=== PATIENT | female | born 1985 | race Caucasian/White ===

== ENCOUNTER 2017-01-01 08:15 | Outpatient (CLI) | payer BC | END 2017-01-01 08:16 | disposition home or self-care (01) | DX: R01.1 Cardiac murmur, unspecified (principal) ==

== ENCOUNTER 2018-05-29 13:00 | Outpatient (CLI) | payer OTHER ==
[2018-05-29 14:09] LABS: HCG,QUALITATIVE BLOOD NEGATIVE
== END 2018-05-29 13:01 | disposition home or self-care (01) ==
LOC: LAB 13:00
PROVIDERS: ATTEND Nurse Practitioner Family
DX: N97.8 Female infertility of other origin (principal); N91.2 Amenorrhea, unspecified
CPT/HCPCS: 36415; 84703

== ENCOUNTER 2019-01-03 09:09 | Outpatient (CLI) | payer BC ==
--- NOTE | 2019-01-04 14:34 | Ultrasound Report ---
Reason: LUMP Procedure Date: 01/03/2019 Accession Number: [id number] / [id number] Procedure: US - Ext Limited Non Vascular CPT Code: FULL RESULT: EXAM: LEFT UPPER EXTREMITY ULTRASOUND - LIMITED EXAM DATE: 01/03/2019 09:24 AM. CLINICAL HISTORY: Palpable left axillary lump. COMPARISON: None. TECHNIQUE: Real-time scanning was performed with static images obtained. FINDINGS: In the left axilla area of palpable concern, normal subcutaneous fat and muscle architecture is seen. No mass, fluid collection, or lymphadenopathy is identified. IMPRESSION: No left axillary mass is identified. [facility]
== END 2019-01-03 09:10 | disposition home or self-care (01) ==
LOC: DI 09:09
PROVIDERS: ATTEND Nurse Practitioner Family
DX: R22.32 Localized swelling, mass and lump, left upper limb (principal)
CPT/HCPCS: 76882